=== PATIENT | female | born 1990 | race Hispanic/Latino ===

== ENCOUNTER 2017-09-23 06:26 | Emergency (ER) | payer OTHER ==
[~2017-09-23] VITALS: Ht 170.2 cm; Wt 74.8 kg
[2017-09-23] MEDS ORDERED: ONDANSETRON HCL INJ 2 MG/ML VIAL IV STA (07:17)
[2017-09-23] MEDS ORDERED: SODIUM CHLORIDE FLUSH 10 ML SYR INJ PRN (07:30)
[2017-09-23] MEDS ORDERED: SODIUM CHLORIDE 0.9% 500ML 500 ML IV STA (08:17)
[2017-09-23] MEDS ORDERED: ACETAMINOPHEN/CODEINE 300MG - 30MG TAB PO ONE (08:45)
[2017-09-23 09:13] VITALS: BP 118/68
== END 2017-09-23 08:50 | disposition home or self-care (01) ==
LOC: FSED 06:26
DX: N20.1 Calculus of ureter (principal); N83.292 Other ovarian cyst, left side
CPT/HCPCS: 74177; 80053; 81003; 81025; 85025; 99283; J2405; J7040